=== PATIENT | male | born 1960 | race Caucasian/White ===

== ENCOUNTER 2018-11-25 06:58 | Day surgery (SDC) | payer OTHER ==
[2018-11-24 13:02] VITALS: BMI 31.0
[2018-11-25 08:43] VITALS: TEMP 98.2
[2018-11-25 09:30] VITALS: BP 115/72; PULSE 52
--- NOTE | 2018-11-26 13:02 | PATH ---
Surgical Pathology Report Patient Name: FERMIN SY [facility]. Rec. #: [id number] /Age/Gender: 1960 (Age: 58) / M Account: [id number] Location: [facility]-ENDOSCOPY Taken: 11/25/2018 Received: 11/25/2018 Reported: 11/26/2018 Physicians: Beth Ayala M.D. Specimen(s) Received A: HEPATIC FLEXURE POLYP B: RECTAL POLYP Clinical History Colon cancer screening Postoperative diagnosis: Diverticulosis, colon polyp Final Diagnosis A. COLON, HEPATIC FLEXURE, POLYP, BIOPSY: POLYPOID COLONIC MUCOSA WITH SMALL LYMPHOID AGGREGATE AND FOCAL SUPERFICIAL HYPERPLASTIC FEATURES. B. RECTUM, POLYP, BIOPSY: HYPERPLASTIC POLYP. Electronically Signed Tabatha Crowder M.D. Gross Description A. Received in formalin, labeled "polyp hepatic flexure" are 2 leigh, irregular portions of soft tissue measuring 0.2 and 0.3 cm. in greatest dimension. The specimens are submitted in toto in one cassette. B. Received in formalin, labeled "polyp rectum" are 3 leigh, irregular portions of soft tissue ranging from 0.2-0.4 cm. in greatest dimension. The specimens are submitted in toto in one cassette. 11/25/201811/25/2018
== END 2018-11-25 09:24 | disposition home or self-care (01) ==
LOC: JASU-ENDO 06:58
PROVIDERS: ATTEND Internal Medicine Gastroenterology
PROC: 0DBL8ZX Excision of Transverse Colon, Via Natural or Artificial Opening Endoscopic, Diagnostic (ICD-10-PCS; 2018-11-25)
PROC: 0DBP8ZX Excision of Rectum, Via Natural or Artificial Opening Endoscopic, Diagnostic (ICD-10-PCS; principal; 2018-11-25 08:00)
DX: Z12.11 Encounter for screening for malignant neoplasm of colon (principal); Z86.010 Personal history of colon polyps; D12.3 Benign neoplasm of transverse colon; K64.8 Other hemorrhoids; K57.30 Diverticulosis of large intestine without perforation or abscess without bleeding; K62.1 Rectal polyp
CPT/HCPCS: 88305-TC